=== PATIENT | female | born 2000 | race Caucasian/White ===

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

== ENCOUNTER → 2018-03-16 | Outpatient (CLI) | payer BC ==
--- NOTE | 2018-03-16 12:07 | DIAGNOSTIC IMAGING REPORT ---
L HIP UNILATERAL 2 VIEWS, R HIP UNILATERAL 2 VIEWS HISTORY: 17 years-old Female M25.559 chronic bilateral hip pain with history of rheumatoid arthritis COMPARISON: Right hip MRI 07/12/2017 TECHNIQUE: 2 views of the bilateral hips for a total of 4 images FINDINGS: Right: There is severe concentric loss of joint space within the femoral acetabular joint with subchondral sclerosis. No definite erosive changes. No acute fracture or dislocation. Imaged right hemipelvis appears intact. No opaque foreign body. LEFT: There is moderate concentric loss of joint space within the femoral acetabular joint with marginal spurring, subchondral sclerosis and subcortical cystic changes or erosions of the femoral head. No acute fracture or dislocation. The imaged left hemipelvis appears intact. Probable phleboliths of the left hemipelvis. IMPRESSION: 1. No acute fracture or dislocation. 2. Concentric loss of joint space within the bilateral femoral acetabular joints, right greater than left is compatible with patient's clinical diagnosis of rheumatoid arthritis. 3. 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 Subcortical lucencies of the left femoral head suggest subcortical cystic changes and/or articular erosions. The above report was generated using voice recognition software. It may contain grammatical, syntax or spelling errors. Electronically signed by: Cj Mccullough M.D. 03/16/2018 12:06 PM Dictated Date/Time: 03/16/2018 12:00 PM
--- NOTE | 2018-03-16 12:12 | DIAGNOSTIC IMAGING REPORT ---
KUB CLINICAL HISTORY: N20.0 pain. COMPARISON STUDY: No previous studies for comparison. FINDINGS: The soft tissues, psoas shadows, renal outlines and intestinal gas pattern appear normal. There is no evidence for bowel obstruction. No abnormal abdominal calcifications are seen. IMPRESSION: Normal study. The above report was generated using voice recognition software. It may contain grammatical, syntax or spelling errors. Electronically signed by: Edwin Bui M.D. 03/16/2018 12:11 PM Dictated Date/Time: 03/16/2018 12:02 PM
== END | disposition home or self-care (01) ==
LOC: C.RAD 11:28
PROVIDERS: ATTEND Urology
DX: M08.90 Juvenile arthritis, unspecified, unspecified site (principal); M25.559 Pain in unspecified hip; N20.0 Calculus of kidney